=== PATIENT | female | born 1950 | race Caucasian/White ===

== ENCOUNTER 2016-11-21 23:58 | Emergency (ER) | payer OTHER ==
[~2016-11-21 23:58] MED LIST: ATENOLOL25 PO; GLU500 PO; LOP600 PO; METFORMIN; METFORMIN500 MG PO; NOR5 PO; TEN50 PO; [UNRECOGNIZED DRUG - REMARK]
[2016-11-22 02:07] VITALS: BP 147/80
== END 2016-11-22 02:07 | disposition left against medical advice (07) ==
LOC: ED 23:58
DX: Z53.21 Procedure and treatment not carried out due to patient leaving prior to being seen by health care provider (principal)

== ENCOUNTER 2017-01-01 23:47 | Emergency (ER) | payer OTHER ==
[2017-01-02 02:35] VITALS: BP 145/85
== END 2017-01-02 02:35 | disposition home or self-care (01) ==
LOC: ED 23:47
DX: K91.840 Postprocedural hemorrhage of a digestive system organ or structure following a digestive system procedure (principal)
CPT/HCPCS: J2001; J3490

== ENCOUNTER 2017-11-26 12:44 | Emergency (ER) | payer OTHER ==
[~2017-11-26] VITALS: Ht 154.9 cm; Wt 64.9 kg
[2017-11-26 13:04] VITALS: Ht 154.9 cm; Wt 64.9 kg
[2017-11-26 14:52] LABS: BASOPHIL % 0.4 % (0-2); PLATELET COUNT 166 x10^3mcL (130-400); RED CELL DISTRIBUTION WIDTH 13.9 % (11.5-14.5)
[2017-11-26 15:00] LABS: CALCIUM 8.3 mg/dL (8.5-10.1); CARBON DIOXIDE 25.7 mmol/L (21-32); CHLORIDE SERUM 105 mmol/L (98-107); CREATININE SERUM 0.7 mg/dL (0.6-1.0); GFR1 > 60 mL/min; GLUCOSE SERUM 110 mg/dL (74-106); POTASSIUM SERUM 3.8 mmol/L (3.5-5.1); SODIUM SERUM 138 mmol/L (136-145)
[2017-11-26 15:05] LABS: ALBUMIN 3.4 g/dL (3.4-5.0); ALKALINE PHOSPHATASE 140 U/L (46-116); ALT/SGPT 38 U/L (14-59); AMYLASE 48 U/L (25-115); AST/SGOT 44 U/L (15-37); LIPASE 97 IU/L (73-393); TOTAL PROTEIN, SERUM 7.5 g/dL (6.4-8.2)
[2017-11-26 16:13] VITALS: BP 165/87
== END 2017-11-26 16:13 | disposition home or self-care (01) ==
LOC: ED 12:44
PROVIDERS: Emergency Medicine
DX: K29.00 Acute gastritis without bleeding (principal); I10 Essential (primary) hypertension; E11.9 Type 2 diabetes mellitus without complications; E78.00 Pure hypercholesterolemia, unspecified
CPT/HCPCS: 83880; J2270; J2405; J3490; J7030; Q0092; Q0162

== ENCOUNTER 2019-06-10 17:59 | Emergency (ER) | payer OTHER, MEDICAID ==
[~2019-06-10] VITALS: Ht 160 cm; Wt 68.9 kg
[2019-06-10 18:08] VITALS: Ht 160 cm; Wt 68.9 kg
[2019-06-10 19:42] VITALS: BP 154/76
== END 2019-06-10 19:42 | disposition home or self-care (01) ==
LOC: ED 17:59
DX: M54.41 Lumbago with sciatica, right side (principal); I10 Essential (primary) hypertension; E11.9 Type 2 diabetes mellitus without complications; E78.00 Pure hypercholesterolemia, unspecified
CPT/HCPCS: J1885